=== PATIENT | male | born 1950 | race Caucasian/White ===

== ENCOUNTER → 2017-05-23 | Outpatient (CLI) | payer MEDICARE, OTHER ==
--- NOTE | 2017-05-24 14:02 | RAD ---
EXAM DESCRIPTION: Foot,Right 3 Views CLINICAL HISTORY: 67 years, Male, PAIN IN RIGHT FOOT COMPARISON: February 21, 2016, November 04, 2015 TECHNIQUE: AP, lateral, and oblique views of the right foot FINDINGS: Internal fixation of the fifth metatarsal proximally is apparent with increasing sclerosis and now bridging callus formation across the proximal metatarsal shaft fracture. There is definitely less lucency and at least partial bony union at the fracture site with the internal fixation pin remaining in place. The fourth metatarsal is abnormal with a predominant transverse slightly oblique fracture of the metatarsal shaft just proximal to its midpoint. I am uncertain whether this represents a stress injury or traumatic injury. Additional fractures are not apparent. The bones are osteopenic. IMPRESSION: Internal fixation with healing fracture and partial bony union of proximal fifth metatarsal fracture with new acute fracture of the fourth metatarsal shaft proximally and anatomic alignment with no evidence of callus formation or healing. Electronically signed by: Logan Vázquez MD 05/24/2017 2:01 PM [facility]
== END ==
LOC: RAD 09:11
PROVIDERS: ATTEND Orthopaedic Surgery
DX: M79.671 Pain in right foot (principal); S92.341A Displaced fracture of fourth metatarsal bone, right foot, initial encounter for closed fracture; Z87.81 Personal history of (healed) traumatic fracture

== ENCOUNTER → 2017-06-21 | Outpatient (CLI) | payer MEDICARE, OTHER ==
--- NOTE | 2017-06-22 14:12 | RAD ---
Three views of the right foot. INDICATION: Closed fracture of the tarsal and metatarsals. COMPARISON: Radiographs from 05/23/2017. FINDINGS: Visualized osseous structures are mildly demineralized. There is similar appearance of partially threaded fixation of the right fifth metatarsal fracture which has progressive sclerosis and callus formation about the fracture site. There is progressive sclerosis and calcification about the fracture of the diaphysis of the right fourth metatarsal. No new acute fracture, dislocation or suspicious osseous lesions are identified. There is a plantar calcaneal enthesophyte. There are mild hypertrophic degenerative changes of the intratarsal joints. No joint effusion identified. Soft tissues have a normal radiographic appearance. IMPRESSION: Healing fractures of the right fourth and fifth metatarsals. Electronically signed by: Justin Benito MD 06/22/2017 2:11 PM [facility] Workstation: [id number]
== END | disposition home or self-care (01) ==
LOC: RAD 09:16
PROVIDERS: ATTEND Orthopaedic Surgery
DX: S92.201D Fracture of unspecified tarsal bone(s) of right foot, subsequent encounter for fracture with routine healing (principal)

== ENCOUNTER → 2017-07-15 | Outpatient (CLI) | payer MEDICARE, OTHER | LOC: GMAB 10:36 | PROVIDERS: ATTEND Family Medicine | DX: E11.9 Type 2 diabetes mellitus without complications (principal); E53.8 Deficiency of other specified B group vitamins; E55.9 Vitamin D deficiency, unspecified; N39.0 Urinary tract infection, site not specified; N18.3 Chronic kidney disease, stage 3 (moderate); E29.8 Other testicular dysfunction; E78.2 Mixed hyperlipidemia; Z12.5 Encounter for screening for malignant neoplasm of prostate; Z79.4 Long term (current) use of insulin | CPT/HCPCS: 82306; 82607; 82670; 84402; 84403; 84439; 84443; 84481; 87086; G0103 ==

== ENCOUNTER → 2017-07-19 | Outpatient (CLI) | payer MEDICARE, OTHER ==
--- NOTE | 2017-07-22 08:55 | RAD ---
EXAM DESCRIPTION: Foot,Right 3 Views CLINICAL HISTORY: CLOSED FX OF METATARSAL BONE RIGHT FOOT. COMPARISON: June 21, 2017 FINDINGS: 3 views of the right foot again demonstrate diffuse osteopenia of the osseous structures. A 3 orthopedic screw fixates a transverse fracture involving the base of the fifth metatarsal. Sclerotic changes are seen in the bony margins around the fracture line lucency that appears slightly less distinct than previous exam. There remains a mildly displaced transverse fracture of the mid shaft of the fourth metatarsal that does not show significant interval change. No significant periosteal reaction or bridging callus formation is seen. Mild hallux valgus deformity of the first metatarsophalangeal joint is seen. Small plantar enthesophyte of the calcaneus is seen. IMPRESSION: Orthopedic screw fixation of a transverse fracture involving the base of the right fifth metatarsal is again seen without significant interval change. There may be slightly improved bridging bony union, but overall there remains lack of significant fracture healing. No interval change in mildly displaced fracture of the midshaft fourth metatarsal. No significant interval healing is noted. Electronically signed by: Chivo Manley MD 07/22/2017 8:54 AM [facility]
== END ==
LOC: RAD 09:29
PROVIDERS: ATTEND Orthopaedic Surgery
DX: S92.341D Displaced fracture of fourth metatarsal bone, right foot, subsequent encounter for fracture with routine healing (principal)

== ENCOUNTER → 2017-08-07 | Outpatient (CLI) | payer MEDICARE, OTHER ==
--- NOTE | 2017-08-07 12:50 | US ---
Renal ultrasound HISTORY: Chronic kidney disease COMPARISON: CT of abdomen and pelvis from January 31, 2012 TECHNIQUE: Grayscale and color Doppler sonographic evaluations of both kidneys. FINDINGS: Suboptimal image quality in this study. Right kidney measures 10.9 cm in maximal span while left kidney measures 9.9 cm in maximal span. Multiple simple cysts identified in both kidneys, the largest on the right side measures 1.2 cm in maximal span while the largest on the left side measures 1.2 cm in maximal span. Diffusely increased echotexture along renal cortices, with associated irregular thinning of the cortices, for both kidneys. No shadowing stone nor hydronephrosis nor concerning soft tissue abnormality in either kidney. IMPRESSION: Suboptimal study. Cystic changes in both kidneys without concerning finding. Possible changes of medical renal disease. Electronically signed by: Clive Brunson MD 08/07/2017 12:49 PM [facility]
== END ==
LOC: US 08:21
PROVIDERS: ATTEND Internal Medicine
DX: N18.3 Chronic kidney disease, stage 3 (moderate) (principal)

== ENCOUNTER → 2017-08-16 | Outpatient (CLI) | payer MEDICARE, OTHER ==
--- NOTE | 2017-08-17 08:38 | RAD ---
EXAM DESCRIPTION: Foot,Right 3 Views CLINICAL HISTORY: 67 years, Male, FRACTURE OF USPECIFIED TARSAL BONES OF RIGHT FOOT COMPARISON: Previous study July 19, 2017 TECHNIQUE: AP, lateral, and oblique views of the right foot FINDINGS: Comminuted transversely oriented fracture of the proximal diaphysis of the right fourth metatarsal is seen. A screw traverses healing fracture of the proximal fifth metatarsal. Compared to previous study, there may be slightly increased density in the region of the fourth metatarsal fracture suggesting early callus formation. Sclerosis of the fifth metatarsal suggests partial healing though there is still visible fracture line partly bridged by new bone growth. Degenerative changes are seen at the anterior ankle joint and at the neck of the talus. Lateral view shows prominent plantar calcaneal enthesophyte. Intact talus and calcaneus. There is no radiopaque foreign body. IMPRESSION: Fractured fourth metatarsal with subtle evidence of early changes of healing. Orthopedic screw through fractured fifth metatarsal. Electronically signed by: Kendall Garcia MD 08/17/2017 8:37 AM [facility]
== END ==
LOC: RAD 09:32
PROVIDERS: ATTEND Orthopaedic Surgery
DX: S92.201D Fracture of unspecified tarsal bone(s) of right foot, subsequent encounter for fracture with routine healing (principal)

== ENCOUNTER → 2017-09-20 | Outpatient (CLI) | payer MEDICARE, OTHER ==
--- NOTE | 2017-09-20 12:46 | CT ---
EXAM DESCRIPTION: Abdomen/Pelvis w/o Contrast: Computed Tomography. CLINICAL HISTORY: PROSTATE CANCER. Staging. Follow-up. Prior placement of brachytherapy seeds. Decreased renal function. COMPARISON: None. TECHNIQUE: Spiral-axial scans 5.0 mm intervals through the abdomen and pelvis without oral or IV contrast. Coronal and sagittal 2.0 mm reconstructions. Total Exam DLP: 1035.03 mGy-cm. This exam was performed according to our departmental CT dose-optimization program which includes automated exposure control, adjustment of the mA and/or kV according to patient size and/or use of iterative reconstruction technique; to reduce radiation dose to as low as reasonably achievable (ALARA). Evaluation of soft tissues limited due to lack of IV contrast. Cannot give IV contrast due to diminished renal function. FINDINGS: Lung bases and pleura: Interstitial densities in the left lower lobe near the base and minimal pleural thickening. Senescent markings bilateral lower lobes. Coronary artery calcifications. Liver, stomach, spleen, and adrenal glands: Minimal distention of the stomach with fluid and small hiatal hernia. Fluid versus medication in the fundus of the stomach with air-fluid level in the pylorus. Solid organs are unremarkable. Pancreas, Gallbladder, and Ducts: Gallbladder visualized. Duct unremarkable. Pancreas is negative. Kidneys and Ureters: Pedunculated cyst on the lateral left renal cortex and multiple low-density objects to small to resolve with CT. Cyst upper pole right kidney. Mesentery: No free air or ascites or large masses. Aorta: Normal caliber with minimal calcification and ectasia. Small periaortic nodes nonspecific. Small Bowel: Air-fluid proximally and gas distally but no distention. Terminal Ileum/Cecum: Calcified nodule abutting the cecum. Appendix not visualized. Normal caliber. Colon: Multiple diverticula distally without complications. Minimal distention of the descending colon by fecal material. Pelvic Organs: Multiple brachytherapy seeds in the prostate gland. Abutting the seminal vesicles. Calcifications in the pelvis. No free fluid. Urinary bladder nondistended minimal wall thickening. No distinct pelvic mass or enlarged lymph nodes. Spine and Bony Pelvis: Spondylosis thoracolumbar spine and L2-3. No sclerotic lesions or lytic lesions. Minimal subchondral changes in the acetabula. No pelvic sclerotic lesions. Abdominal Wall/Back Soft Tissues: Bilateral fatty inguinal hernias not containing bowel. Periumbilical fatty hernia not containing bowel approximately 1 cm wide defect in the midline. IMPRESSION: 1. Brachytherapy seeds in the prostate gland. No distinct pelvic masses, enlarged lymph nodes, are free fluid in the pelvis. No sclerotic or lytic lesions in the included osseous structures. Nonspecific small periaortic lymph nodes bilaterally do not appear reactive. 2. Probable cysts bilateral kidneys. 2 small to resolve with CT and lack of IV contrast. Consider correlation with renal ultrasound. 3. Diverticulosis distal colon and fecal distention proximal colon. No complications. 4. Atelectasis versus infiltrate left lower lobe. Minimal distention of the stomach which is nonspecific. Bilateral fatty inguinal hernias not containing bowel. Umbilical fatty hernia not containing bowel. Electronically signed by: Sterling Wagner MD 09/20/2017 12:44 PM CDT
== END ==
LOC: CT 08:54
PROVIDERS: ATTEND Family Medicine
DX: C61 Malignant neoplasm of prostate (principal)

== ENCOUNTER → 2017-09-23 | Outpatient (CLI) | payer MEDICARE, OTHER | LOC: GMAB 10:09 | PROVIDERS: ATTEND Family Medicine | DX: N18.3 Chronic kidney disease, stage 3 (moderate) (principal) ==

== ENCOUNTER → 2017-11-29 | Outpatient (CLI) | payer MEDICARE, OTHER ==
--- NOTE | 2017-11-29 15:32 | RAD ---
EXAM DESCRIPTION: Foot,Right 3 Views CLINICAL HISTORY: CLOSED FX OF TARSAL BONE COMPARISON: Right foot radiographs 08/16/2017. TECHNIQUE: AP, lateral, and oblique images right foot. FINDINGS: Nail screw fixation of fracture of the proximal right fifth metatarsal. Stable position since the prior study. Minimally displaced fracture of the mid shaft of the fourth metatarsal. No significant sclerosis in the fracture site or callus formation noted. No other fractures or dislocations. Diffuse bone density loss stable. Healing fractures with deformity distal tibia and fibula. Deformity of the talar dome and tibial plafond. IMPRESSION: Nonhealing minimally displaced fracture of the midshaft of the fourth metatarsal. Stable fusion of proximal fifth metatarsal fracture. Electronically signed by: Sterling Wagner MD 11/29/2017 3:31 PM CDT
== END ==
LOC: RAD 08:56
PROVIDERS: ATTEND Orthopaedic Surgery
DX: S92.201D Fracture of unspecified tarsal bone(s) of right foot, subsequent encounter for fracture with routine healing (principal)

== ENCOUNTER → 2017-12-24 | Outpatient (CLI) | payer MEDICARE, OTHER ==
--- NOTE | 2017-12-24 12:33 | RAD ---
EXAM DESCRIPTION: Foot,Right 3 Views CLINICAL HISTORY: 67 years, Male, CLOSED FX OF TARSAL AND METATARSAL BONES COMPARISON: None TECHNIQUE: AP, lateral, and oblique views of the right foot FINDINGS: Orthopedic screw is seen in the lateral right foot extending through the fifth metatarsal traversing proximal fracture. Fracture of the fourth metatarsal is seen with evidence of surrounding callus formation. There is metatarsus primus varus with mild hallux valgus. Oblique view shows sclerosis at the fracture sites of the right fourth and fifth metatarsals. Bridging callus formation is favored without a definite gap at the fracture sites. On the oblique view, degenerative changes are seen at the anterior ankle joint. On the lateral view, the talus and calcaneus appear intact. Prominent plantar calcaneal spurring. IMPRESSION: Healing fractures of the right fourth and fifth metatarsals. Electronically signed by: Kendall Garcia MD 12/24/2017 12:31 PM CDT
--- NOTE | 2017-12-24 12:36 | RAD ---
EXAM DESCRIPTION: Hand,Right 3 Views CLINICAL HISTORY: HAND PAIN COMPARISON: None TECHNIQUE: AP, LATERAL, AND OBLIQUE FINDINGS: Three-view right hand shows no fracture or dislocation. There is no bone lesion. Degenerative narrowing of the second and third metacarpal phalangeal joints is noted suggesting chondrocalcinosis. Mild spurring at the head of the third metacarpal. Mild degenerative changes are seen in the lateral carpus and at the first carpometacarpal joint. IMPRESSION: Degenerative arthritic changes as described. Electronically signed by: Kendall Garcia MD 12/24/2017 12:34 PM CDT
== END ==
LOC: RAD 08:00
PROVIDERS: ATTEND Orthopaedic Surgery
DX: S92.344D Nondisplaced fracture of fourth metatarsal bone, right foot, subsequent encounter for fracture with routine healing (principal); M79.641 Pain in right hand

== ENCOUNTER → 2018-04-14 | Outpatient (CLI) | payer MEDICARE, OTHER ==
--- NOTE | 2018-04-14 10:37 | RAD ---
EXAM DESCRIPTION: Right foot, 3 views CLINICAL HISTORY: RIGHT FOOT PAIN FINDINGS/ IMPRESSION: Comparison 12/24/2017. Similar appearance to the current examination Screw traverses a nonunited proximal fifth metatarsal metaphysis fracture Nonunited proximal diaphysis fourth metatarsal fracture with hypertrophic margins No other metatarsal fracture No phalangeal or tarsal fracture Electronically signed by: Logan Carrillo MD 04/14/2018 10:36 AM [facility]
--- NOTE | 2018-04-14 10:41 | RAD ---
EXAM DESCRIPTION: Left knee, 4 radiographs CLINICAL HISTORY: LEFT KNEE PAIN FINDINGS/ IMPRESSION: Severe medial femorotibial osteoarthritis with [id number] contact, subchondral sclerosis and minimal early cystic change/focal subchondral lucency. Joint line osteophytes. Marginal osteophytes lateral femorotibial and patellofemoral. Small suprapatellar joint effusion No acute fracture. Loose body in the anterior intercondylar notch about 1.5 cm in dimension Electronically signed by: Logan Carrillo MD 04/14/2018 10:40 AM [facility]
--- NOTE | 2018-04-14 10:42 | RAD ---
EXAM DESCRIPTION: Right knee, 4 radiographs CLINICAL HISTORY: RIGHT KNEE PAIN FINDINGS/ IMPRESSION: Meniscal chondrocalcinosis. No advanced arthrosis or focal osteochondral lesion. Small marginal osteophytes patellofemoral No fracture. Small suprapatellar joint effusion. Normal mineralization Electronically signed by: Logan Carrillo MD 04/14/2018 10:41 AM [facility]
--- NOTE | 2018-04-14 10:43 | RAD ---
EXAM DESCRIPTION: Pelvis, 2 radiographs CLINICAL HISTORY: Bilateral hip pain FINDINGS/ IMPRESSION: No advanced arthrosis or focal osteochondral lesion of the hip joints. No fracture of the proximal femora or pelvis Sacral neural foraminal lines are intact. Minimal osteoarthritis of the sacroiliac joints Prostate radiation implant seeds. No lytic or blastic bony lesion Electronically signed by: Logan Carrillo MD 04/14/2018 10:42 AM [facility]
== END ==
LOC: RAD 08:48
PROVIDERS: ATTEND Orthopaedic Surgery
DX: Z01.818 Encounter for other preprocedural examination (principal); M25.562 Pain in left knee; M25.561 Pain in right knee; M79.671 Pain in right foot; M25.552 Pain in left hip; M25.551 Pain in right hip; M17.12 Unilateral primary osteoarthritis, left knee; M25.462 Effusion, left knee; M25.461 Effusion, right knee

== ENCOUNTER 2018-05-07 05:38 | Inpatient (IN) | payer MEDICARE, OTHER ==
--- NOTE | 2018-05-06 08:33 | HP ---
CHIEF COMPLAINT: Left knee pain. HISTORY OF PRESENT ILLNESS: Mr. Gutierrez is a 68-year-old male with a history of severe knee pain. It has been getting progressively worse and he has failed conservative measures. After discussing the risks, benefits and alternatives to operative therapy, the patient has given informed consent for total knee arthroplasty. PAST SURGICAL HISTORY: 1. Fifth metatarsal percutaneous pinning. MEDICATIONS: 1. Tylenol No. 3. 2. Albuterol. 3. Allopurinol. 4. Amlodipine. 5. Budesonide. 6. Bystolic. 7. Diclofenac. 8. Bactrim. 9. Doxycycline. 10. Furosemide. 11. Glipizide. 12. Hydroxychloroquine. 13. Lodine. 14. Montelukast. 15. Prednisone 16. Prolia. 17. Rifampin. 18. Sensipar. 19. Symbicort. 20. Ventolin. ALLERGIES: NO KNOWN DRUG ALLERGIES. CODE STATUS: DNR. IMMUNIZATIONS: Up to date. FAMILY HISTORY: None pertinent to today's complaint. SOCIAL HISTORY: The patient does not smoke or use any illicit drugs. He does drink on occasion. REVIEW OF SYSTEMS: Negative except as indicated in the History of Present Illness. PHYSICAL EXAMINATION: VITAL SIGNS: Blood pressure 120/74. Pulse 87. Height 5'11". Weight 179. MENTAL STATUS: The patient is awake, alert, and is able to give a good history and participate in the physical. The patient is oriented to person, place and time. SKIN: Normal tone and turgor. HEENT: Normocephalic, atraumatic. Pupils equal, round and reactive. Mucosal membranes are moist. NECK: Normal range of motion. No thyromegaly, no lymphadenopathy. CHEST: Normal respiratory excursion. CARDIAC: Regular rate and rhythm. No murmurs, rubs or gallops. MUSCULOSKELETAL: Bilateral upper extremities show full active range of motion. He has intact sensation and they are warm and well perfused. He has no deformity. Strength is 5/5. The right lower extremity shows full range of motion of the hip. He has pain with range of motion of the knee and crepitus. He has pain medially and with patellar mobilization. He has near full extension with flexion to about 110 degrees. There is no varus/valgus or anterior/posterior laxity. The left side shows full range of motion of the hip. He has pain and crepitus with range of motion of the knee. He lacks about 5 to 7 degrees of extension of the knee and only has about 90 to 95 degrees of flexion. There is no varus/valgus or anterior/posterior laxity of the knee. He has a moderate effusion. He has a slight varus deformity to the knee. IMAGING: X-rays show severe arthritis. ASSESSMENT: 1. Arthritis. PLAN: The plan at this point is for total knee arthroplasty. We have discussed the risks, benefits, and alternatives to that and the patient has given informed consent. #[id number] [facility]
[2018-05-07] MEDS ORDERED: LIDOCAINE 1% 10 ML VIAL INJ ONE (07:00)
[2018-05-07] MEDS ORDERED: DEXAMETHASONE INJ 10 MG/ML VIAL ONE (07:00)
[2018-05-07] MEDS ORDERED: PROPOFOL 200 MG/20 ML VIAL IV ONE (07:00)
[2018-05-07] MEDS ORDERED: diphenhydrAMINE HCL 50 MG/ML VIAL ONE ×2 (07:00→18:19)
[2018-05-07] MEDS ORDERED: WATER FOR INJ 10 ML VIAL INJ ONE (07:00)
[2018-05-07] MEDS ORDERED: VECURONIUM BROMIDE 10 MG VIAL IV ONE (07:00)
[2018-05-07] MEDS ORDERED: ONDANSETRON INJ 4 MG/2 ML VIAL ONE (07:00)
[2018-05-07] MEDS ORDERED: ceFAZolin SODIUM 1 GM VIAL ONE (08:48)
[2018-05-07] MEDS ORDERED: LACTATED RINGERS 1,000 ML ONE ×2 (09:24→09:44)
[2018-05-07] MEDS ORDERED: SODIUM CHL 0.9% 100ML MINI-BAG 100 ML IVPB ONE (09:24)
[2018-05-07] MEDS ORDERED: TRANEXAMIC ACID 1,000 MG/10 ML VIAL ONE ×2 (09:24→09:31)
[2018-05-07] MEDS ORDERED: SODIUM CHLORIDE 0.9% 250ML 250 ML ONE ×3 (09:25→19:21)
[2018-05-07] MEDS ORDERED: SODIUM CHLORIDE 0.9% 100ML 100 ML IVPB ONE (09:25)
[2018-05-07] MEDS ORDERED: VANCOMYCIN HCL INJ 1,000 MG VIAL IVPB ONE ×3 (09:25→19:22)
[2018-05-07] MEDS ORDERED: TEMAZEPAM 15 MG CAP PO PRN (09:38)
[2018-05-07] MEDS ORDERED: MORPHINE SULFATE INJ 10 MG/ML VIAL IV PRN (09:38)
[2018-05-07] MEDS ORDERED: BENZOCAINE-MENTH LOZ (CEPACOL) 1 EA LOZ MT PRN (09:38)
[2018-05-07] MEDS ORDERED: MAGNESIUM HYDROXIDE 30 ML UD PO PRN (09:38)
[2018-05-07] MEDS ORDERED: ACETAMINOPHEN 500 MG TAB PO PRN (09:38)
[2018-05-07] MEDS ORDERED: PROMETHAZINE HCL INJ 25 MG in SODIUM CHLORIDE 0.9% 50ML 50 ML IVPB PRN (09:38)
[2018-05-07] MEDS ORDERED: MORPHINE SULFATE INJ 10 MG/ML VIAL IM PRN (09:38)
[2018-05-07] MEDS ORDERED: SODIUM CHLORIDE 0.9% (FLUSH) 10 ML SYG IV PRN (09:38)
[2018-05-07] MEDS ORDERED: TRANEXAMIC ACID INJ 1,000 MG in SODIUM CHLORIDE 0.9% 100ML 100 ML IVPB ONE (09:38)
[2018-05-07] MEDS ORDERED: ZOLPIDEM TARTRATE 5 MG TAB PO PRN (09:38)
[2018-05-07] MEDS ORDERED: BISACODYL SUPPOSITORY 10 MG PR PRN (09:38)
[2018-05-07] MEDS ORDERED: DEX 5% W/NACL 0.45% 1000ML 1,000 ML IVS PRN (09:38)
[2018-05-07] MEDS ORDERED: ACETAMINOPHEN 325 MG TAB PO PRN (09:38)
[2018-05-07] MEDS ORDERED: ALUMINUM & MAGNESIUM HYDROXIDE 30 ML UD PO PRN (09:38)
[2018-05-07] MEDS ORDERED: NALOXONE HCL INJ 0.4 MG/ML VIAL IV PRN (09:38)
[2018-05-07] MEDS ORDERED: PROMETHAZINE HCL INJ 12.5 MG in SODIUM CHLORIDE 0.9% 50ML 50 ML IVPB PRN (09:38)
[2018-05-07] MEDS ORDERED: ONDANSETRON INJ 4 MG/2 ML VIAL IV PRN (09:38)
[2018-05-07] MEDS ORDERED: SUGAMMADEX SODIUM 200 MG/2 ML VIAL IV ONE (09:44)
[2018-05-07] MEDS ORDERED: MIDAZOLAM INJ 2 MG/2 ML VIAL ONE (09:44)
[2018-05-07] MEDS ORDERED: fentaNYL CITRATE INJ 50 MCG/ML AMP ONE (09:44)
[2018-05-07] MEDS ORDERED: MORPHINE SULFATE *EPIDURAL* 0.5 MG/ML VIAL ONE (09:50)
[2018-05-07] MEDS ORDERED: MORPHINE PCA 1 MG/ML 100 ML BAG IVPB SCH (10:00)
[2018-05-07] MEDS: IV SET AND CAP CHANGE INJ INJ SCH (10:06)
[2018-05-07] MEDS: ceFAZolin SODIUM 1 GM VIAL ONE ×4 (10:10→12:57)
[2018-05-07] MEDS: BUPIVACAINE 0.5% 30 ML VIAL INJ ONE ×2 (11:04→12:54)
[2018-05-07] MEDS: BUPIVACAINE LIPOSOME 13.3 MG/ML VIAL INJ ONE ×2 (11:04→12:54)
[2018-05-07] MEDS: VANCOMYCIN HCL INJ 1,000 MG VIAL IVPB ONE ×2 (11:05→12:57)
[2018-05-07] MEDS ORDERED: GLUCAGON INJ 1 MG VIAL SUBCU PRN (16:00)
[2018-05-07] MEDS ORDERED: DEXTROSE 50% 25 GM/50 ML SYG IV PRN (16:00)
[2018-05-07] MEDS ORDERED: SODIUM CHLORIDE 0.45% 1000ML 1,000 ML IVS ONE (16:24)
[2018-05-07] MEDS: INSULIN LISPRO 100 UNITS/ML PEN SUBCU SCH ×2 (16:30→21:04)
[2018-05-07] MEDS: ceFAZolin SODIUM 2 GRAMS PREMI 2 GM in PREMIX BAG 1 BAG IVPB SCH ×2 (16:38→23:34)
[2018-05-07] MEDS ORDERED: ceFAZolin SODIUM 2 GRAMS PREMI 50 ML IVPB ONE ×2 (17:22→19:21)
[2018-05-07] MEDS: CELECOXIB 100 MG CAP PO SCH (17:58)
[2018-05-07] MEDS ORDERED: ALBUTEROL SULFATE 2.5 MG/3 ML VIAL NEB PRN (18:01)
[2018-05-07] MEDS ORDERED: diphenhydrAMINE HCL 50 MG/ML VIAL IV PRN (18:30)
[2018-05-07] MEDS: VANCOMYCIN HCL INJ 1,000 MG in SODIUM CHLORIDE 0.9% 250ML 250 ML IVPB SCH (18:51)
[2018-05-07] MEDS ORDERED: SODIUM CHLORIDE 0.45% 1000ML 1,000 ML IVS PRN (19:10)
[2018-05-07] MEDS ORDERED: ENOXAPARIN SODIUM 30 MG/0.3 ML SYG SUBCU ONE (19:21)
[2018-05-07] MEDS: SODIUM BICARBONATE 650 MG TAB PO SCH (20:31)
[2018-05-07] MEDS: DOCUSATE CALCIUM 240 MG CAP PO SCH (20:31)
[2018-05-07] MEDS: ENOXAPARIN SODIUM 30 MG/0.3 ML SYG SUBCU SCH (22:33)
--- NOTE | 2018-05-07 23:01 | CONS ---
DATE OF CONSULTATION: SUPERVISING PHYSICIAN: Phil Mcmahan M.D. CHIEF COMPLAINT: Left knee pain. HISTORY OF PRESENT ILLNESS: This is a 68 year-old male patient with a history of severe left knee pain. It has progressively worsened over the last few years and it has failed conservative measures. Due to his increasing knee pain he has requested Dr. Eric Hubbard, orthopedic surgeon, for operative intervention. He was admitted today for a left total knee arthroplasty. He had no problems intraoperatively. I am seeing the patient postoperatively in consultation. PAST MEDICAL HISTORY: 1. Chronic kidney disease stage IV with a baseline creatinine of 2.2. 2. Essential hypertension. 3. History of prostate cancer. 4. 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 5. Hypertriglyceridemia. 6. Osteoarthritis of the knee. 7. Type 2 diabetes mellitus. PAST SURGICAL HISTORY: 1. Low back surgery, 2. Right foot surgery. 3. Radioactive seed implants for prostate cancer. 4. Open reduction and internal fixation of the right leg. OUTPATIENT MEDICATIONS: Per the EMR and awaiting verification. ALLERGIES: NO KNOWN DRUG ALLERGIES. FAMILY HISTORY: Leukemia and liver cancer. SOCIAL HISTORY: He is self employed. He is . He has never smoked. He drinks alcohol on a social basis only. He denies any illicit drug use. REVIEW OF SYSTEMS: Negative except as per history of present illness. PHYSICAL EXAMINATION: VITAL SIGNS: He is afebrile with temperature 97.6, pulse rate 86, blood pressure 144/74, respiratory rate 16, O2 sat 98% on room air. GENERAL: This is a 68 year-old male patient who is lying in his hospital bed. He is in no acute distress. HEENT: Normocephalic and atraumatic. Pupils are equal and reactive. Oropharynx is clear. NECK: Supple without mass. RESPIRATORY: Essentially clear to auscultation bilaterally. CHEST: There is equal rise and fall of the chest with inspiration and expiration. HEART: Regular rate and rhythm. GASTROINTESTINAL: Abdomen is soft, nondistended, non-tender. Bowel sounds are positive. EXTREMITIES: Bilateral pedal pulses are palpable at +2. His left leg is in the CPM machine. He has an Iceman in place to the left knee. NEUROLOGIC: He is awake, alert and oriented times three. Cranial nerves II- XII are grossly intact. LABORATORY: Glucose has run between 85 and 138. All other labs and films have been reviewed via the EMR. IMPRESSION: 1. Osteoarthritis of the left knee status post left total knee arthroplasty per Dr. Eric Hubbard, orthopedic surgeon. 2. Chronic kidney disease stage 4. Baseline creatinine is 2.2. 3. Hypertension. 4. History of prostate cancer. 5. History of lung sarcoidosis. 6. Type 2 diabetes mellitus. PLAN: We will continue present supportive care. Orthopedic issues will be per Dr. Eric Hubbard, orthopedic surgeon. He will begin his physical therapy for strengthening and conditioning tomorrow. I will restart his home medications as soon as they are verified. I have started him on a.c. and h.s. blood sugars with sliding scale NovoLog insulin coverage. I have also started him on breathing treatments. I will also check a BNP in the morning to check his kidney function. Encouraged good pulmonary hygiene. Will continue to monitor the patient closely and follow as needed. Dr. Mcmahan is the collaborating physician available for consultation. #[id number] [facility]TDD
--- NOTE | 2018-05-08 06:06 | RAD ---
Procedure: XR KNEE 1-2 VIEWS Exam Date: 05/07/2018 9:39 AM [employer] [employer] Ordering Provider: ANAHI WADE Clinical Indication: TKA Comparison: None Findings: Total knee arthroplasty with subcutaneous emphysema seen about the lateral aspect of the knee. There may be a few locules of air within the joint space. No periprosthetic fracture or evidence of loosening. No bone loss at the bone metal interface. Impression: Soft tissue emphysema as above. No acute fracture or subluxation. Electronically signed by: Amilcar Gupta MD 05/08/2018 6:04 AM [facility]
[2018-05-08] MEDS: VANCOMYCIN HCL INJ 1,000 MG in SODIUM CHLORIDE 0.9% 250ML 250 ML IVPB SCH (06:16)
[2018-05-08] MEDS: INSULIN LISPRO 100 UNITS/ML PEN SUBCU SCH ×4 (08:14→21:29)
[2018-05-08] MEDS ORDERED: ceFAZolin SODIUM 2 GM in SODIUM CHLORIDE 0.9% 100ML 100 ML IVPB SCH (08:20)
[2018-05-08] MEDS: MAGNESIUM OXIDE 400 MG TAB PO SCH (08:24)
[2018-05-08] MEDS: SODIUM BICARBONATE 650 MG TAB PO SCH ×2 (08:24→21:28)
[2018-05-08] MEDS: ALLOPURINOL 100 MG TAB PO SCH (08:24)
[2018-05-08] MEDS: CELECOXIB 100 MG CAP PO SCH ×2 (08:24→17:37)
--- NOTE | 2018-05-08 08:41 | OP ---
DATE OF PROCEDURE: 05/07/18 PREOPERATIVE DIAGNOSIS: 1. Arthritis of the knee. POSTOPERATIVE DIAGNOSIS: 1. Arthritis of the knee. PROCEDURE: 1. Total knee arthroplasty. SURGEON: Eric Hubbard MD. WHARF TENDER HELPER: Sterling Sequeira CST, SA-C. ANESTHESIA: General anesthesia. COMPLICATIONS: None. FINDINGS: Severe arthritis. INDICATION: Mr. Gutierrez has a history of worsening knee pain with associated stiffness, arthritis and flexion contracture. He has attempted conservative measures, however, has failed to gain relief. Because of his ongoing pain, he has requested operative intervention. After discussing the risks, benefits and alternatives to operative therapy, the patient has given informed consent for total knee arthroplasty. PROCEDURE: The patient was brought to the Operating Room and placed in supine position. General anesthesia was induced and the patient's leg was sterilely prepped and draped. Following prepping and draping, the distal femur was exposed and using an intramedullary guide, the distal femoral cut was made. The appropriate sized cutting block was measured, pinned into place, and the anterior, posterior, and chamfer cuts were made. The ACL was transected and the tibia was subluxed. Both the medial and lateral menisci were removed. An intramedullary guide was used to make the proximal tibial cut. The appropriate sized base plate was placed and a trial polyethylene was placed. The trial femur was placed, the knee was reduced, and the knee was taken through a range of motion. The knee was stable in anterior, posterior, varus and valgus stress. The patella tracked anatomically without evidence of subluxation or dislocation. After trialing, the trial components were removed and the bony surfaces were thoroughly irrigated with saline. Following irrigation, the surfaces were dried and the final components were cemented into place. The excess cement was removed and the remaining cement was allowed to cure. The knee was again taken through a range of motion to confirm stability. The wound was then irrigated with saline and closure was performed using PDS to approximate the arthrotomy followed by closure of the subcutaneous tissues with a combination of running and interrupted Monocryl sutures. Sterile dressing was placed. The patient was awoken from anesthesia and taken to Recovery. POSTOPERATIVE PLAN: The patient will be weight-bearing as tolerated on postoperative day 1. COMPONENTS: [employer] Triathlon knee, size 6 femur, size 5 tibia, 9 mm insert. #[id number] MTDD
[2018-05-08] MEDS ORDERED: ceFAZolin SODIUM 1 GM VIAL ONE (08:53)
[2018-05-08] MEDS ORDERED: SODIUM CHLORIDE 0.9% 100ML 100 ML IVPB ONE (08:53)
--- NOTE | 2018-05-08 08:59 | PN ---
DATE: 05/08/18 SUBJECTIVE: Mr. Gutierrez is doing well. He is up, eating and his pain is well controlled. OBJECTIVE: Afebrile. Vital signs stable. Dressing is clean, dry and intact. ASSESSMENT: Status post total knee arthroplasty. PLAN: The plan at this point is for him to begin weightbearing as tolerated today. #[id number] [facility]TD[facility]
[2018-05-08] MEDS ORDERED: MONTELUKAST 10 MG TAB PO SCH (09:00)
[2018-05-08] MEDS ORDERED: MONTELUKAST SODIUM 10 MG PO SCH (09:00)
[2018-05-08] MEDS: ENOXAPARIN SODIUM 30 MG/0.3 ML SYG SUBCU SCH ×2 (11:12→23:22)
--- NOTE | 2018-05-08 13:19 | PN ---
SUPERVISING PHYSICIAN: Phil Mcmahan MD DATE: 05/08/18 SUBJECTIVE: The patient is sitting up in his chair in his hospital room. He feels quite good today. His leg does hurt and he felt like he may have overdone the CPM machine, but he still feels quite good. He denies any chest pain, shortness of breath, nausea, vomiting, diarrhea or constipation. He will have outpatient physical therapy at [place] after discharge. I have not ordered a walker as yet as he may have the appropriate kind at home and we will check back later. His is at the bedside. OBJECTIVE: VITAL SIGNS: Afebrile. Heart rate 100. Blood pressure 128/79. Respiratory rate 20. O2 saturation 98% on room air. RESPIRATORY: Essentially clear to auscultation bilaterally. CARDIAC: Regular rate and rhythm. GASTROINTESTINAL: Abdomen is soft, nondistended, nontender. Bowel sounds are positive. EXTREMITIES: His Darshan bandage to his left knee is dry and intact. Bilateral pedal pulses are palpable at +2. He has a knee brace on his right knee. NEUROLOGIC: Awake, alert and oriented times three. LABORATORY: Hemoglobin 14.9, hematocrit 44.1. Blood sugars have run between 104 and 141. Electrolytes are basically within normal limits. Creatinine 2.4. His baseline creatinine is 2.2. All other labs and films have been reviewed via the EMR. ASSESSMENT: 1. Osteoarthritis of the left knee status post left total knee arthroplasty per Dr. Eric Hubbard, orthopedic surgeon. Postoperative day #1. 2. Chronic kidney disease, stage 4. Baseline creatinine is 2.2. Today, it is 2.4 3. Hypertension, stable. 4. History of prostate cancer, stable. 5. History of lung sarcoidosis, stable. 6. Type 2 diabetes mellitus on oral therapy, stable. PLAN: We will continue present supportive care. Orthopedic issues will be per Dr. Eric Hubbard, orthopedic surgeon. He will continue with physical therapy for strengthening and conditioning. We will plan for discharge on Saturday with outpatient physical therapy in [place]. I will also order a walker if he needs it. I will also check his electrolytes and creatinine tomorrow. His hemoglobin and hematocrit are stable at this time. We will continue to monitor the patient closely and follow as needed. Dr. Mcmahan is the collaborating physician and available for consultation. #[id number] [facility]
[2018-05-08] MEDS: NON-FORMULARY MEDICATION 1 EA MIS (Hydroxychloroquine Sulfate [Plaquenil] 200 MG) PO SCH (13:41)
[2018-05-08] MEDS: ceFAZolin SODIUM 2 GRAMS PREMI 2 GM in PREMIX BAG 1 BAG IVPB SCH (13:51)
[2018-05-08] MEDS: NEBIVOLOL 2.5 MG TAB PO SCH (17:20)
[2018-05-08] MEDS: traMADol HCL 50 MG TAB PO PRN (17:39)
[2018-05-08] MEDS: DOCUSATE CALCIUM 240 MG CAP PO SCH (21:28)
[2018-05-08] MEDS: MONTELUKAST 10 MG TAB PO SCH (21:28)
[2018-05-09] MEDS: traMADol HCL 50 MG TAB PO PRN ×2 (02:32→17:12)
[2018-05-09] MEDS: CYCLOBENZAPRINE HCL 10 MG TAB PO PRN (02:33)
[2018-05-09] MEDS: INSULIN LISPRO 100 UNITS/ML PEN SUBCU SCH ×4 (07:04→20:52)
[2018-05-09] MEDS: CELECOXIB 100 MG CAP PO SCH ×2 (07:48→17:08)
[2018-05-09] MEDS: MAGNESIUM OXIDE 400 MG TAB PO SCH (08:14)
[2018-05-09] MEDS: SODIUM BICARBONATE 650 MG TAB PO SCH ×2 (08:14→20:52)
[2018-05-09] MEDS: ALLOPURINOL 100 MG TAB PO SCH (08:14)
[2018-05-09] MEDS: NEBIVOLOL 2.5 MG TAB PO SCH (08:14)
[2018-05-09] MEDS: SODIUM CHLORIDE 0.9% (FLUSH) 10 ML SYG IV SCH ×2 (08:15→20:53)
--- NOTE | 2018-05-09 08:18 | PN ---
DATE: 05/09/18 SUBJECTIVE: Mr. Gutierrez is doing well. He is up to a chair with the knee bent at 90 degrees. OBJECTIVE: Afebrile. Vital signs stable. Wound is clean. There are no signs or symptoms of infection. ASSESSMENT: Status post total knee arthroplasty. PLAN: The plan at this point is for him to continue with weightbearing as tolerated. He will likely be discharged today. We will see him back in clinic at his regularly scheduled appointment in 10 days to 2 weeks. He has been instructed to return immediately should any change in his condition occur. [facility][id number] [facility]
[2018-05-09] MEDS: NON-FORMULARY MEDICATION 1 EA MIS (Hydroxychloroquine Sulfate [Plaquenil] 200 MG) PO SCH (08:25)
[2018-05-09] MEDS: ENOXAPARIN SODIUM 30 MG/0.3 ML SYG SUBCU SCH ×2 (11:22→23:30)
--- NOTE | 2018-05-09 13:13 | PN ---
SUPERVISING PHYSICIAN: Phil Mcmahan MD DATE: 05/09/18 SUBJECTIVE: The patient is sitting up in bed. His is at he bedside. He is planned for discharge tomorrow. We discussed his lab results and his discharge plan. He is planning to go home tomorrow with [facility] and physical therapy. He has no complaints of nausea, vomiting, diarrhea or constipation, chest pain or shortness of breath. OBJECTIVE: VITAL SIGNS: Temperature 97.7. Heart rate 82. Blood pressure 138/81. Respiratory rate 20. O2 saturation 98% on room air. RESPIRATORY: Essentially clear to auscultation bilaterally. CARDIAC: Regular rate and rhythm. GASTROINTESTINAL: Abdomen is soft, nondistended, nontender. Bowel sounds are positive. EXTREMITIES: His dressing to his left knee is dry and intact. Bilateral pedal pulses are palpable at +2. NEUROLOGIC: Awake, alert and oriented times three. LABORATORY: Sodium slightly low at 134 with potassium 4, chloride 104, carbon dioxide 22, BUN 34, creatinine 2.04. Baseline creatinine is 2.2. Blood sugars have run between 128 and 133. All other labs and films have been reviewed via the EMR. ASSESSMENT: 1. Osteoarthritis of the left knee status post left total knee arthroplasty per Dr. Eric Hubbard, orthopedic surgeon. Postoperative day #2. 2. Chronic kidney disease, stage 4. Baseline creatinine is 2.2. Today, it is 2.04 3. Hypertension, stable. 4. History of prostate cancer, stable. 5. History of lung sarcoidosis, stable. 6. Type 2 diabetes mellitus on oral therapy, stable. PLAN: We will continue present supportive care. Orthopedic issues will be per Dr. Eric Hubbard, orthopedic surgeon. He will continue with physical therapy for strengthening and conditioning today and tomorrow morning and plan for discharge after his morning therapy session for [facility] and physical therapy. I have already sent in his Xarelto and Flexeril to [facility] in [place]. Dr. Hubbard has already sent in his tramadol. Meanwhile, we will continue to monitor the patient closely and follow as needed. Dr. Mcmahan is the collaborating physician and available for consultation. #[id number] [facility]
[2018-05-09] MEDS: MONTELUKAST 10 MG TAB PO SCH (20:51)
[2018-05-09] MEDS: DOCUSATE CALCIUM 240 MG CAP PO SCH (20:52)
[2018-05-10] MEDS: traMADol HCL 50 MG TAB PO PRN (00:29)
[2018-05-10] MEDS: CYCLOBENZAPRINE HCL 10 MG TAB PO PRN (00:30)
[2018-05-10] MEDS: INSULIN LISPRO 100 UNITS/ML PEN SUBCU SCH ×2 (07:04→12:04)
[2018-05-10] MEDS: CELECOXIB 100 MG CAP PO SCH (07:23)
[2018-05-10] MEDS: SODIUM CHLORIDE 0.9% (FLUSH) 10 ML SYG IV SCH (08:22)
[2018-05-10] MEDS: ALLOPURINOL 100 MG TAB PO SCH (08:22)
[2018-05-10] MEDS: MAGNESIUM OXIDE 400 MG TAB PO SCH (08:22)
[2018-05-10] MEDS: NEBIVOLOL 2.5 MG TAB PO SCH (08:22)
[2018-05-10] MEDS: SODIUM BICARBONATE 650 MG TAB PO SCH (08:22)
[2018-05-10] MEDS: NON-FORMULARY MEDICATION 1 EA MIS (Hydroxychloroquine Sulfate [Plaquenil] 200 MG) PO SCH (08:26)
[2018-05-10 10:12] VITALS: BP 103/62; TEMP 98; O2SAT 97
[2018-05-10] MEDS: IV SET AND CAP CHANGE INJ INJ SCH (10:20)
[2018-05-10] MEDS: ENOXAPARIN SODIUM 30 MG/0.3 ML SYG SUBCU SCH (11:12)
[2018-05-10] MEDS ORDERED: MAGNESIUM HYDROXIDE 30 ML UD PO ONE (21:00)
[2018-05-10] MEDS ORDERED: BISACODYL SUPPOSITORY 10 MG PR ONE (21:00)
[2018-05-14] MEDS ORDERED: EXENATIDE 2 MG SC SCH (09:00)
== END 2018-05-10 13:05 | disposition home health service (06) | DRG 470 ==
LOC: AMB 05:38 → MS 14:41
PROVIDERS: ADMIT Orthopaedic Surgery; ATTEND Orthopaedic Surgery
PROC: 0SRD0J9 Replacement of Left Knee Joint with Synthetic Substitute, Cemented, Open Approach (ICD-10-PCS; principal; 2018-05-07 10:21)
DX: M17.12 Unilateral primary osteoarthritis, left knee (principal); N18.4 Chronic kidney disease, stage 4 (severe); Z66 Do not resuscitate; I12.9 Hypertensive chronic kidney disease with stage 1 through stage 4 chronic kidney disease, or unspecified chronic kidney disease; Z85.46 Personal history of malignant neoplasm of prostate; E11.22 Type 2 diabetes mellitus with diabetic chronic kidney disease; D86.0 Sarcoidosis of lung; E78.1 Pure hyperglyceridemia

== ENCOUNTER → 2018-05-22 | Outpatient (CLI) | payer MEDICARE, OTHER | LOC: GMAE 10:13 | PROVIDERS: ATTEND Family Medicine | DX: E29.1 Testicular hypofunction (principal); E34.9 Endocrine disorder, unspecified ==

== ENCOUNTER → 2018-06-30 | Outpatient (CLI) | payer MEDICARE, OTHER | LOC: GMAE 12:10 | PROVIDERS: ATTEND Family Medicine | DX: N18.3 Chronic kidney disease, stage 3 (moderate) (principal) ==

== ENCOUNTER → 2018-08-05 | Outpatient (CLI) | payer MEDICARE, OTHER | LOC: GMAE 18:22 | PROVIDERS: ATTEND Family Medicine | DX: N18.3 Chronic kidney disease, stage 3 (moderate) (principal); E83.110 Hereditary hemochromatosis ==

== ENCOUNTER → 2018-09-22 | Outpatient (CLI) | payer MEDICARE, OTHER | LOC: GMAE 10:44 | PROVIDERS: ATTEND Family Medicine | DX: E34.9 Endocrine disorder, unspecified (principal); N18.3 Chronic kidney disease, stage 3 (moderate) ==

== ENCOUNTER → 2019-07-10 | Outpatient (CLI) | payer MEDICARE, OTHER ==
--- NOTE | 2019-07-10 11:44 | RAD ---
XR FOOT 3 OR MORE VIEWS HISTORY: 69 years Male PAIN IN RIGHT FOOT COMPARISON: April 14, 2018. TECHNIQUE: 3 views of the right foot. FINDINGS: Redemonstrated fixation screw in the fifth metatarsal bridging prior fracture. Fracture line is no longer visible with prominent callus formation present at the fracture site. Possible nondisplaced fracture of the fixation screw at the osseous fracture site. There is also interval healing of a fracture through the fourth metatarsal, with no residual fracture line visible on today's exam. Remaining osseous structures appear intact. No dislocation observed. Lisfranc joint demonstrates normal alignment radiographically. Scattered degenerative changes again noted in the right foot and ankle. Prominent plantar calcaneal enthesophyte is again seen. No diagnostic soft tissue abnormality observed. IMPRESSION: Interval healing of fractures in the fourth and fifth metatarsals of the right foot. Question nondisplaced fracture of the fixation screw in the fifth metatarsal. Electronically signed by: William Garrido MD 07/10/2019 11:43 AM [facility]
== END ==
LOC: RAD 09:27
PROVIDERS: ATTEND Orthopaedic Surgery
DX: S92.344D Nondisplaced fracture of fourth metatarsal bone, right foot, subsequent encounter for fracture with routine healing (principal); S92.345D Nondisplaced fracture of fourth metatarsal bone, left foot, subsequent encounter for fracture with routine healing; Z98.890 Other specified postprocedural states

== ENCOUNTER → 2019-11-17 | Outpatient (CLI) | payer MEDICARE, OTHER | LOC: LAB.O 09:02 | PROVIDERS: ATTEND Family Medicine | DX: C61 Malignant neoplasm of prostate (principal); E11.9 Type 2 diabetes mellitus without complications; N13.8 Other obstructive and reflux uropathy; E29.1 Testicular hypofunction ==

== ENCOUNTER → 2020-04-08 | Outpatient (CLI) | payer MEDICARE, OTHER | LOC: LAB.O 09:40 | PROVIDERS: ATTEND Specialist | DX: E04.1 Nontoxic single thyroid nodule (principal); D86.0 Sarcoidosis of lung; J45.901 Unspecified asthma with (acute) exacerbation ==